=== PATIENT | female | born 1990 | race Caucasian/White ===

== ENCOUNTER 2021-10-09 14:42 | Inpatient (IN) | payer OTHER ==
[~2021-10-09] VITALS: Ht 165.1 cm; Wt 3.6 kg
[2021-10-09] MEDS ORDERED: CHILDREN'S ASPI81 MG (15:58)
[2021-10-09] MEDS ORDERED: PRENATAL CAPLE1 EAC1 (15:58)
[2021-10-15] MEDS ORDERED: ACETAMINOPHEN-1 EAC2 PO (13:32)
[2021-10-15] MEDS ORDERED: IBUPROFEN600 MG PO (13:32)
[2021-10-15] MEDS ORDERED: DOCUSATE SODIU100 MG PO (13:32)
== END 2021-10-15 14:00 | disposition home or self-care (01) | DRG 786 ==
LOC: LDR 14:42 → OB/GYN 14:42
PROVIDERS: ADMIT Obstetrics & Gynecology; ATTEND Obstetrics & Gynecology
PROC: 4A1HXCZ Monitoring of Products of Conception, Cardiac Rate, External Approach (ICD-10-PCS; 2021-10-09)
PROC: 10D00Z1 Extraction of Products of Conception, Low, Open Approach (ICD-10-PCS; principal; 2021-10-12 12:30)
DX: O14.03 Mild to moderate pre-eclampsia, third trimester (principal); O60.14X0 Preterm labor third trimester with preterm delivery third trimester, not applicable or unspecified; O34.211 Maternal care for low transverse scar from previous cesarean delivery; Z3A.36 36 weeks gestation of pregnancy; Z37.0 Single live birth; Z20.822 Contact with and (suspected) exposure to COVID-19

== ENCOUNTER 2022-07-14 16:28 | Emergency (ER) | payer OTHER ==
[~2022-07-14] VITALS: Ht 162.6 cm; Wt 74.8 kg
[~2022-07-14 16:28] MED LIST: ACETAMINOPHEN-1 EAC2 PO; CHILDREN'S ASPI81 MG; DOCUSATE SODIU100 MG PO; IBUPROFEN600 MG PO; PRENATAL CAPLE1 EAC1
== END 2022-07-14 23:11 | disposition home or self-care (01) ==
LOC: ER 16:28
DX: N93.9 Abnormal uterine and vaginal bleeding, unspecified (principal)